=== PATIENT | male | born 1985 | race Caucasian/White ===

== ENCOUNTER 2021-01-08 06:34 | Day surgery (SDC) | payer OTHER ==
[~2021-01-08 06:34] MED LIST: Lactated Ringers 1,000 ML IV SCH; Sodium Chloride 0.9% 10 ML Syringe FLUSH PRN; Sodium Chloride 0.9% 2.5 ML Syringe FLUSH PRN
[2021-01-08] MEDS ORDERED: Sodium Chloride 0.9% 20 ML SDV FLUSH SCH (06:45)
[2021-01-08] MEDS ORDERED: Lidocaine 1% with EPINEPHrine 1:100,000 20 ML MDV ONE (07:27)
[2021-01-08] MEDS ORDERED: Lidocaine 1% 20 ML MDV ONE (07:27)
[2021-01-08] MEDS ORDERED: ceFAZolin 2 GM in Premix Bag 1 BAG IV SCH (08:00)
[2021-01-08] MEDS ORDERED: Midazolam 1 MG/ML 2 ML SDV ONE ×2 (08:20→08:44)
[2021-01-08] MEDS: Midazolam 1 MG/ML 2 ML SDV IVPUSH ONE ×2 (08:45→10:41)
[2021-01-08] MEDS ORDERED: Midazolam 1 MG/ML 2 ML SDV IVPUSH ONE ×3 (09:03→10:11)
--- NOTE | 2021-01-08 15:33 | OR ---
SURGEON: Levy Sepulveda M.D. 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 OPERATION: Vasovasostomy. DESCRIPTION: The patient was given adequate sedation. He was in the supine position. External genital area was prepped and draped in sterile drapes. The vas deferens on the right side was identified and held between thumb and index finger. Lidocaine 1% was infiltrated around the vas. It was then contained inside a towel clip, and a small incision was made over the vas, which was dissected free from surrounding structures. The previous stitch that was used to occlude it was identified. The segment that was occluded was removed. The ends were reapproximated and sutured using interrupted 6-0 nylon sutures. The expressed fluid from the proximal end showed sperms. The right side was handled in the same manner, was put together using the same method. The skin was closed with 3-0 chromic on both sides. Estimated blood loss was minimal. The patient tolerated the procedure well and was back to his room in stable condition. He comes to my office in 2 days to make sure there is no swelling, infection, or bleeding. BELA / BIENVENIDO /[id number]
== END 2021-01-08 13:26 | disposition home or self-care (01) ==
LOC: MW.SDS 06:34
PROVIDERS: ATTEND Urology
DX: N49.1 Inflammatory disorders of spermatic cord, tunica vaginalis and vas deferens (principal); Z98.52 Vasectomy status; Z01.812 Encounter for preprocedural laboratory examination; Z20.822 Contact with and (suspected) exposure to COVID-19; Z98.890 Other specified postprocedural states
CPT/HCPCS: 88304; J0690; J2250; J7120; U0002